=== PATIENT | male | born 1935 | race Caucasian/White ===

== ENCOUNTER 2020-05-06 15:00 | Inpatient (IN) | payer MEDICARE ==
[~2020-05-06] VITALS: Ht 167.6 cm; Wt 86.2 kg
[2020-05-06 16:58] LABS: BASOPHILS # (AUTO) 0.1 /CMM (0.0-0.2); BASOPHILS % (AUTO) 0.9 % (0.0-2.0); EOSINOPHILS % (AUTO) 2.5 % (0.0-6.0); HEMATOCRIT 46 % (39-51); HEMOGLOBIN 14.7 g/dL (13.5-17.5); LYMPHOCYTES # (AUTO) 1.4 /CMM (0.8-4.8); LYMPHOCYTES % (AUTO) 21.4 % (20.0-44.0); MEAN CORPUSCULAR HGB CONC 32 g/dl (31.0-36.0); MEAN CORPUSCULAR VOLUME 89 fL (80-96); MONOCYTES # (AUTO) 0.7 /CMM (0.1-1.30); MONOCYTES % (AUTO) 10.1 % (2.0-12.0); NEUTROPHILS # (AUTO) 4.3 /CMM (1.8-8.9); NEUTROPHILS % (AUTO) 65.1 % (43.0-81.0); PLATELET COUNT (AUTO) 220 /CMM (150-450); RED BLOOD CELL COUNT(AUTO) 5.11 MIL/uL (4.5-6.0); WHITE BLOOD COUNT (AUTO) 6.6 K/uL (4.3-11.0)
[2020-05-06 17:07] LABS: CALCIUM, SERUM 8.9 mg/dL (8.5-10.1); CARBON DIOXIDE 32 mmol/L (21-32); CHLORIDE 103 mmol/L (98-107); CREATININE 1.3 mg/dL (0.6-1.3); GLUCOSE 128 mg/dL (74-106); SODIUM SERUM 142 mmol/L (136-145); UREA NITROGEN, BLOOD 23 mg/dL (7-18)
[2020-05-06] MEDS ORDERED: IV NS 0.9% 500 ML BAG IV ONE (17:30)
[2020-05-06] MEDS ORDERED: PRAV10TA40 PO (17:50)
[2020-05-06] MEDS ORDERED: FINA5TAB11 PO (17:50)
[2020-05-06] MEDS ORDERED: TAMS-12 PO (17:50)
[2020-05-06] MEDS ORDERED: ASPI-1169 PO (17:50)
[2020-05-06] MEDS ORDERED: POTA10TA11 PO (17:50)
[2020-05-06] MEDS ORDERED: CHOL100040 PO (17:50)
[2020-05-06] MEDS ORDERED: DOCU-141 PO (17:50)
[2020-05-06] MEDS ORDERED: FURO20TA4 PO (17:50)
[2020-05-06] MEDS ORDERED: METH250T3 PO (17:50)
--- NOTE | 2020-05-06 17:50 | NUR ---
patient came in to the [facility] from home, numbness from right hand to elbow x 1 minute. On room air, breathing evenly and unlabored. connected to the monitor and pulse ox. kept comfortable, will continue to monitor accordingly.
[2020-05-06] MEDS ORDERED: ASPIRIN 325 MG TABLET PO ONE (18:00)
[2020-05-06] MEDS ORDERED: ASPIRIN 325 MG TABLET ONE (18:17)
--- NOTE | 2020-05-06 20:17 | NUR ---
received a call from [facility] and said that [facility] is working on the transfer, but no accepting hospital at this time, will call back.
--- NOTE | 2020-05-06 20:49 | NUR ---
covid 19 swab collected and sent to lab
--- NOTE | 2020-05-06 21:38 | NUR ---
Felicia cool in [facility] - 05/06/20 at 2232 by CBATAPRASAD Call from lab, Rapid covid negative.
--- NOTE | 2020-05-06 21:38 | NUR ---
call from lab. rapid covid positive.
--- NOTE | 2020-05-06 22:33 | NUR ---
SPOKE TO LALITA CM. WAS ASKED TO FAX COVID RESULT TO [facility]
--- NOTE | 2020-05-07 03:00 | NUR ---
pending admit. awaiting call back from . no beds available at this time.
--- NOTE | 2020-05-07 06:53 | NUR ---
PER regal CM; possible bed available after 7am
--- NOTE | 2020-05-07 08:00 | NUR ---
pt provided with breakfast
--- NOTE | 2020-05-07 08:55 | NUR ---
call from garcia,still waiting on bed from [facility]
--- NOTE | 2020-05-07 10:41 | NUR ---
ARON COOPER CALLED. THEY STILL HAVE NO BEDS AT [facility]. ALLISON SAID IF WE NEED TO ADMIT THEN WE CAN ADMIT THE PATIENT JUST NOTIFY IF WE DO. CALL BACK FOR ALLISON. [phone]
--- NOTE | 2020-05-07 11:32 | NUR ---
PAGED DR. RAGLAND FOR ADMISSION. IN A MEETING, WILL CALL BACK AFTER.
--- NOTE | 2020-05-07 14:08 | NUR ---
BED 111-2
--- NOTE | 2020-05-07 14:25 | NUR ---
called for report, but nurse is still unavailable.
--- NOTE | 2020-05-07 14:45 | NUR ---
report given to argelia carranza.
--- NOTE | 2020-05-07 15:22 | NUR ---
CALLED ARON COOPER FROM [facility]. GAVE US AUTH NUMBER FOR PATIENT. AUTH [id number].
[2020-05-07] MEDS ORDERED: ZOLPIDEM TARTRATE 10 MG TABLET PO PRN (15:30)
[2020-05-07] MEDS ORDERED: ACETAMINOPHEN 325 MG TABLET PO PRN (15:30)
[2020-05-07] MEDS ORDERED: ENOXAPARIN SODIUM 40 MG/0.4 ML DISP.SYRIN SQ SCH (15:30)
--- NOTE | 2020-05-07 15:30 | NUR ---
per dr. shao. degroot for tele bed
--- NOTE | 2020-05-07 16:30 | NUR ---
PT RECEIVED FROM ED ON RA, O2 SATURATION 98% NO RESPIRATORY DISTRESS OR SOB. BREATHING IS EVEN AND UNLABORED. PT IS A/OX4, OCCASIONALLY FORGETFUL. PT ON MONITOR SHOWING SINUS RHYTHM 70-80s. PT AMBULATORY X 1 MINIMAL ASSIST TO BATHROOM, SKIN IS INTACT. PT ON REGULAR DIET. PT HAS LAC #18, INTACT AND FLUSHED WELL.
[2020-05-07] MEDS ORDERED: METHYLDOPA (250MG) 250 MG TABLET PO SCH (17:00)
--- NOTE | 2020-05-07 17:16 | NUR ---
PT REFUSE CT ANGIO OF HEAD AND NECK. MD RAGLAND AWARE
--- NOTE | 2020-05-07 19:51 | NUR ---
PT REMAINS IN BED, ON RA O2 SATURATION 98%. NO RESPIRATORY DISTRESS OR SOB. PT IS AOX4 WITH FORGETFULNESS. PT IS SR ON MONITOR. PT AMBULATORY WITH MINIMAL ASSIST TO BATHROOM; HAD 1 BM AND VOIDS IN VELEZ, DRAINING DARK YELLOW URINE. PT SKIN REMAINS INTACT. PT IS REGULAR DIET. PT LAC #18 AC INTACT AND LOCKED. NO SIGNS OF INFECTION OR INFILTRATION. PT IN BED LOCKED LOWEST POSITION, CALL LIGHT WITHIN REACH, ALL SAFETY MEASURES IN PLACE. REPORT GIVEN TO KARLOS FOR BREN
[2020-05-07 20:00] VITALS: BP 177/99
[2020-05-07] MEDS: hydrALAZINE HCL 10 MG TABLET PO PRN (20:05)
[2020-05-07] MEDS: HYDROCODONE/APAP 5/325MG TABLET PO PRN (21:52)
[2020-05-07] MEDS ORDERED: DOCUSATE SODIUM 100 MG CAPSULE PO SCH (22:00)
[2020-05-07] MEDS ORDERED: ATORVASTATIN 40 MG TABLET PO SCH (22:00)
[2020-05-08] VITALS: BP 168/97
[2020-05-08 02:32] LABS: BILIRUBIN,URINE NEGATIVE (NEGATIVE); BLOOD, URINE TRACE-INTA Ery/uL (NEGATIVE); COLOR,URINE YELLOW (YELLOW); LEUKOCYTE ESTERASE ,URINE LARGE (NEGATIVE); NITRITE, URINE NEGATIVE (NEGATIVE); PH,URINE 8.5 (5.0-8.0); PROTEIN,URINE 100 mg/dl (NEGATIVE); UGLUCOSE NEGATIVE (NEGATIVE); UROBILINOGEN,URINE 0.2 EU/dL (0.2)
[2020-05-08 02:42] LABS: BACTERIA,URINE Moderate /HPF (None Seen); SQUAMOUS EPITHELIAL CELL,UR None Seen /HPF (None Seen); TRIPLE PHOSPHATE CRYSTAL,UR Many /HPF (None Seen)
[2020-05-08 03:09] VITALS: BP 164/95
[2020-05-08] MEDS: hydrALAZINE HCL 10 MG TABLET PO PRN (03:22)
[2020-05-08 05:20] VITALS: BP 161/97
--- NOTE | 2020-05-08 05:38 | NUR ---
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 HE HAS A VELEZ D/T BPH PROBLEMS NO C/O A GOOD NIGHT
[2020-05-08] MEDS: HYDROCODONE/APAP 5/325MG TABLET PO PRN (06:13)
[2020-05-08 06:14] LABS: ALBUMIN 3.3 g/dL (3.4-5.0); BILIRUBIN,TOTAL 0.7 mg/dL (0.2-1.0); C-REACTIVE PROTEIN 0.8 mg/dL (0.0-0.9); CALCIUM, SERUM 8.7 mg/dL (8.5-10.1); CREATININE 1.3 mg/dL (0.6-1.3); POTASSIUM 3.4 mmol/L (3.5-5.1)
--- NOTE | 2020-05-08 07:42 | NUR ---
PT RECEIVED IN BED ALERT AND ORIENTED X 4. O2 SATURATION 96% ON ROOM AIR, NO SOB. PT ON MONITOR SHOWING SINUS RHYTHM. PT IS AMBULATORY WITH MINIMAL ASSIST OUT OF BED, SKIN INTACT. PT REGULAR DIET. PT HAS CHRONIC VELEZ WITH CLOUDY YELLOW URINE, UA SHOWS BACTERIA AND WBC/RBC IN URINE. BED IN LOCKED LOWEST POSITION, CALL LIGHT WITHIN REACH, ALL SAFETY MEASURES IN PLACE. WILL CONTINUE TO MONITOR CLOSELY
[2020-05-08 08:00] VITALS: BP 131/72
[2020-05-08] MEDS ORDERED: CHOLECALCIFEROL 1,000 UNIT TABLET (VIT D3) PO SCH (09:00)
[2020-05-08] MEDS ORDERED: FINASTERIDE (5 MG) 5 MG TABLET PO SCH (09:00)
[2020-05-08] MEDS ORDERED: ASPIRIN 81 MG TAB.CHEW PO SCH (09:00)
[2020-05-08] MEDS ORDERED: TAMSULOSIN 0.4 MG CAP.SR.24H PO SCH (09:00)
[2020-05-08] MEDS ORDERED: FUROSEMIDE 20 MG TABLET PO SCH (09:00)
[2020-05-08] MEDS ORDERED: AMLO10TA4 PO (09:07)
[2020-05-08] MEDS ORDERED: AMLODIPINE BESYLATE 5 MG TABLET PO SCH (09:13)
[2020-05-08] MEDS ORDERED: AMLODIPINE BESYLATE 10 MG TABLET PO SCH ×2 (09:30)
[2020-05-08] MEDS ORDERED: PNEUMOCOCCAL 23-VAL P-SAC VAC 0.5 ML VIAL IM ONE (11:30)
[2020-05-08 12:00] VITALS: BP 144/96
[2020-05-08] MEDS ORDERED: CEPHALEXIN MONOHYDRATE 250 MG CAPSULE PO SCH ×2 (12:00)
--- NOTE | 2020-05-08 12:00 | NUR ---
This SW attempted to speak with patient via hospital line. Patient is currently on isolation due to testing positive for COVID-19. ABAD spoke with SUSHILA Christina who informed this SW that the patient does not have a hospital line at this time however SUSHILA Christina will provide one for the patient and will have call this SW once patient hase a line in his room. ABAD will follow-up with SUSHILA Christina and this patient. ABAD remains available for all things regarding this patent.
--- NOTE | 2020-05-08 12:31 | NUR ---
SW received a call from SUSHILA Christina and patient for this SW to conduct SS assessment. Patient is alert and oriented x4. Patient informed this SW that patient's niece Divya has been the primary caregiver for this patient after the of patient's . Patient reported that due to COVID Divya has not been visiting frequently but does check in with the patient several times a day. Patient informed this SW that he does have a director mission that comes into his home twice a month but patient reported that he is independent in ADL's and IADL's. Patient reported receiving SSI however at this time could not provide approximation. Patient denies SI and HI. Patient denies mental health diagnosis. Patient denies auditory and visual hallucinations. Patient scored a 1 on PHQ-9. SW will provide Stroke Empowerment resources to this patient. No further SS interventions are needed at this time. SW remains available for all needs regarding this patient.
[2020-05-08] MEDS ORDERED: POTASSIUM CHLORIDE 10 MEQ TABLET.SA PO SCH (15:30)
--- NOTE | 2020-05-08 15:57 | NUR ---
PT DISCHARGED TO HOME, TRANSPORTED BY GRETCH[facility]ICK. DC INSTRUCTIONS GIVEN TO PT AND DELANO. ALL WRISTBANDS REMOVED, IV SITE REMOVED. BELONGINGS GIVEN TO PT. PT REFUSED PORTABLE O2 TO TAKE HOME, STATES HE HAS 02 EQUIPMENT AT HIS HOME. PT ON RA, 96% , NO RESPIRATORY DISTRESS. PULSE 86, RESP 16, 96% O2. BP 142/90.ALL DC PAPERWORK COMPLETE
[2020-05-08 16:00] VITALS: BP 142/90
== END 2020-05-08 15:50 | disposition home or self-care (01) | DRG 69 ==
LOC: ER 15:06 → TELE-TD 05-07 14:17 → TELE1 05-07 16:07 → MEDSG1 05-08 15:18
PROVIDERS: ADMIT Internal Medicine; ATTEND Internal Medicine
DX: G45.9 Transient cerebral ischemic attack, unspecified (principal); U07.1 COVID-19; N39.0 Urinary tract infection, site not specified; N40.0 Benign prostatic hyperplasia without lower urinary tract symptoms; I25.10 Atherosclerotic heart disease of native coronary artery without angina pectoris; Z79.899 Other long term (current) drug therapy; I10 Essential (primary) hypertension; E86.0 Dehydration; E78.5 Hyperlipidemia, unspecified; Z79.82 Long term (current) use of aspirin; Z86.73 Personal history of transient ischemic attack (TIA), and cerebral infarction without residual deficits; Z90.5 Acquired absence of kidney; Z85.118 Personal history of other malignant neoplasm of bronchus and lung; Z85.528 Personal history of other malignant neoplasm of kidney; Z90.2 Acquired absence of lung [part of]; R33.8 Other retention of urine; N40.1 Benign prostatic hyperplasia with lower urinary tract symptoms
CPT/HCPCS: 36415; 70450-TC; 71045-TC; 80048-TC; 80053-TC; 80061-TC; 81001; 82962-TC; 84484-TC; 85025-TC; 85378-TC; 85730-TC; 86140-TC; 87081-TC; 87086-TC; 90732; 93308-TC; 97112-TC; 97116-TC; 97530-TC; C9803; G0378; J1650; J7040